=== PATIENT | female | born 1945 | race Caucasian/White ===

== ENCOUNTER 2023-09-07 16:04 | Emergency (ER) | payer MEDICARE, SELFPAY ==
[2023-09-07 16:09] VITALS: BP 129/88
--- NOTE | 2023-09-07 16:41 | ED.GENMED ---
History of Present Illness
General
Chief Complaint: DVT/Possible Blood Clot
Source: patient and family
Time Seen by Provider: 09/07/23 16:26
Travel History
Have you had any contact with someone who has COVID-19?: No
Do you have any symptoms of coronavirus? Fever > 100 degrees, chills, cough, shortness of breath, sore throat, loss of taste or smell, muscle aches, or headache?: No
History of Present Illness
History of Present Illness:
this patient is a 78-year-old female who states that in May she was diagnosed with pseudogout in the right knee, had treatment including arthrocentesis and a cortisone pack, but states that she just feels like it has not really gotten fully
better. She has been under the care of the orthopedic doctors and had an x-ray today that was consistent with arthritis. She notes continued knee pain and swelling and was told that it is related to arthritis. She states that they are not
concerned about tick arthritis. 5 days ago, she says she was pulling herself up and not using her arms and felt a 'rip' in the right calf area. It was slightly tender at that time, but since then, there is been progressive tenderness of the right
calf and ankle area. She was referred to the emergency department today to rule out a DVT. She denies chest pain, shortness of breath, fever, chills, nausea, vomiting, abdominal pain, numbness, or other complaints
Past History
Past History
ED Past Medical History: HTN and Other (Wrist Fracture, Vertigo)
ED Past Surgical History: Orthopedic (neck surgery)
Social History
Tobacco: Smoker
Alcohol: Daily (Wine One glass)
Drug: None
Personal:
Living: alone
Employment: Retired
Family History
Family History: Other
Phy Exam
Physical Exam
Physical Exam:
GENERAL: Alert , in no apparent distress
EYE: pupils equal and reactive
NECK: Supple, no significant adenopathy.
ENT: o/p clr, mmm.
CARDIAC: Regular rate and rhythm .
LUNGS: Clear breath sounds bilaterally, no acute respiratory distress, no wheezes/rales/rhonchi
ABDOMEN: Soft, without focal tenderness, no r/g, no cvat
NEUROLOGICAL: Alert and oriented, no focal neuro deficits
SKIN: Warm and dry, skin intact.
MUSCULOSKELETAL: tr-1+ R le edema, well perfused, 2+ DP pulses bilaterally, full range of motion, superficial abrasions noted without secondary signs of infection such as redness, warmth, fluctuance, open wound. Patient does have a small effusion
of the right knee and generalized discomfort but range of motion is well-preserved. No specific bony tenderness
PSYCH: Normal and appropriate interaction.
Course
Orders/Labs/Results
Orders:
Orders
09/07/23 16:12
Periph Venous Lwr Ext Rt US [US Periph Venous LOWER Ext RT] Urgent
Comment:
Reason For Exam: swelling, calf pain
Vital Signs
Initial and Last Documented VS:
Initial Vital Signs
Temp Pulse Resp BP Pulse Ox
98.4 F 91 18 129/88 98
09/07/23 16:09 09/07/23 16:09 09/07/23 16:09 09/07/23 16:09 09/07/23 16:09
Last Documented Vital Signs
Temp Pulse Resp BP Pulse Ox
98.4 F 84 18 139/75 100
09/07/23 16:09 09/07/23 17:21 09/07/23 17:21 09/07/23 17:21 09/07/23 17:21
*Critical Care Note
Total Time (30-74mins, 75-104mins- exclusive of procedures): Not Applicable
Update Note
Update Note:
Patient presents to the Emergency Department with __right calf discomfort
Number and Complexity of Problems Addressed at the Encounter
� Chronic conditions affecting care:
� Acute Exacerbation and/or Progression of Chronic Illness:
� Differential Diagnosis includes: But not limited to muscle strain, DVT, superficial thrombophlebitis, etc.
Amount and/or Complexity of Data to be Reviewed and Analyzed
� I performed an independent evaluation of and my interpretation is:
EKG:
CT:
Xrays:
Laboratory Studies:
Other: US preliminary report...negative (pt aware prelim reprot)
� Review of other/old records reveals: Patient was in the hospital most recently 2019 with chest pain and mild hyponatremia
� Clinical information was obtained by an independent historian: Daughter who is at bedside
� Prescriptions/Medications Considered but not given:
� Further testing considered but not performed: Did consider the possibility of septic arthritis however patient has well-preserved range of motion of right knee without tenderness to palpation, fever, redness, warmth, or other
findings.
Risk of Complications and/or Morbidity or Mortality of Patient Management
� Social determinants of health affecting care:
� Discussion with other providers (PCP, Hospitalists, Consultants, etc):
� Escalation of care including admission/observation vs risk of discharge considered: No signs to suggest neuro invovlvement, motor 5/5, sens intact, 2+ dp pulses, well perfused, no bony ttp,m no redness/warmth/etc to suggest
infection. Unclear speicif reason for swelling, US neg for dvt, d/w pt import of f/u and reasons to rted.
ED Attending Note
-
Portions of this chart may have been created with voice recognition software.� Occasional wrong word or��sound alike� substitutions may have occurred due to the inherent limitations of voice recognition software.
Discharge Plan
Departure
Patient with high blood pressure during this ER visit?: Yes
Condition: Good
Discharge Problem:
leg swelling
Instructions: Swelling, BLOOD PRESSURE
Prescriptions:
No Action
meclizine 25 MG tablet
25 mg PO Q8HPRN PRN (Reason: Dizziiness) Qty: 15 0RF
bupropion HCl 300 MG tablet extended release 24 hr
300 mg PO DAILY
oxycodone-acetaminophen 5 MG/325 MG tablet
1 tab PO .Q4-6HPRN PRN (Reason: severe pain)
citalopram 20 MG tablet
20 mg PO DAILY
amlodipine 10 MG tablet
10 mg PO DAILY
diazepam 5 MG tablet
5 mg PO DAILYPRN PRN (Reason: vertigo before nauseous)
Patient Comments:
last filled 08/28/19 for #20 for 10 day supply
valsartan [Diovan] 160 MG capsule
160 mg PO DAILY Qty: 30 0RF
Referrals:
Georgi Keating MD [Family Provider] -
Activity Restrictions/Additional Instructions:
PLEASE FOLLOW UP WITH YOUR DOCTOR PROMPTLY. IF YOU DEVELOP CHEST PAIN, TROUBLE BREATHING, FEVER, VOMITING, NUMBNESS, TINGLING, WEAKNESS, REDNESS, WARMTH, INCREASING SWELLING OR OHTER WORRISOME SIGNS, GO TO THE ER IMMEDIATELY!
Interventions
Interventions:
*Risk Screen - Suicide Last Done: 09/07/23 17:20
*General Assessment Last Done: 09/07/23 17:20
*Neglect/Abuse Screening Last Done: 09/07/23 17:20
*ED COVID-19 Vaccine History Last Done: 09/07/23 16:09
ED- Cardiac Assessment Last Done: 09/07/23 16:40
ED- Pulmonary Assessment Last Done: 09/07/23 16:40
ED-Peripheral Vascular Assessment Last Done: 09/07/23 16:41
ED-Skin Assessment Last Done: 09/07/23 16:40
Discharge Date and Time
Print Language: PARAGUAYAN
[2023-09-07 17:21] VITALS: BP 139/75; BMI 21.6
== END 2023-09-07 19:36 | disposition home or self-care (01) ==
LOC: EMR 16:04
PROVIDERS: EMERGENCY PHYSICIAN Emergency Medicine; FAMILY PHYSICIAN Family Medicine
DX: M79.89 Other specified soft tissue disorders (principal); M79.661 Pain in right lower leg; M25.461 Effusion, right knee; I10 Essential (primary) hypertension; M19.90 Unspecified osteoarthritis, unspecified site; F17.200 Nicotine dependence, unspecified, uncomplicated; Z88.2 Allergy status to sulfonamides
CPT/HCPCS: 99284; 93971

== ENCOUNTER 2024-05-14 19:52 | Emergency (ER) | payer MEDICARE, SELFPAY ==
[2024-05-14 20:01] VITALS: BP 138/85
[2024-05-14 20:19] LABS: % Basophils 0.5 % (0-2); % Eosinophils 2.1 % (0-6); % Immature Granulocytes 0.2 % (0-0.5); % Lymphocytes 29.8 % (20.5-51.1); % Monocytes 8.3 % (1.7-9.3); % Neutrophils 59.1 % (42.2-75.2); Absolute Eosinophils 0.2 10^3/uL (0-0.7); Absolute Lymphocytes 2.5 10^3/uL (1.2-3.4); Absolute Monocytes 0.7 10^3/uL (0.1-0.6); Hematocrit 39.5 % (37.0-47.0); Hemoglobin 13.3 g/dL (12.0-16.0); Mean Corp Hgb Conc. 33.7 g/dL (33.0-37.0); Mean Corpuscular Hgb 30.7 pg (27.0-31.0); Mean Corpuscular Volume 91.2 fL (81.0-99.0); Mean Platelet Volume 8.1 fL (7.4-10.4); Nucleated Red Blood Cells % 0 %; Platelet Count 317 10^3/uL (130-400); Red Blood Cell Count 4.33 10^6/uL (4.20-5.40); Red Cell Dist. Width 14.1 % (11.5-14.5); White Blood Cell Count 8.4 10^3/uL (4.8-10.8)
[2024-05-14 20:38] LABS: ALT (SGPT) 16 U/L (0-35); AST (SGOT) 22 U/L (14-36); Alkaline Phosphatase 84 U/L (38-126); Blood Urea Nitrogen 15 mg/dl (7-17); Calcium 8.9 mg/dl (8.4-10.2); Carbon Dioxide 23 mmol/L (22-30); Chloride 105 mmol/L (98-107); Glucose 93 mg/dl (70-99); Sodium 134 mmol/L (135-145); Total Bilirubin 0.4 mg/dl (0.2-1.3); Total Protein 6.5 g/dl (6.3-8.2); eGFR > 60.00
[2024-05-14 20:47] LABS: Troponin I < 0.012 ng/ml
[2024-05-14 22:00] VITALS: BP 127/78
[2024-05-14 23:03] VITALS: BP 122/79; BMI 20.9
--- NOTE | 2024-05-14 23:09 | ED.GENMED ---
History of Present Illness
General
Chief Complaint: Cardiac Symptoms
Source: patient and family
Exam Limitations: none
Time Seen by Provider: 05/14/24 22:54
Nursing documentation reviewed up to this point in time: agreed with
History of Present Illness
History of Present Illness:
79-year-old female past medical history of hypertension presenting to the emergency department today with concerns of fluttering of her chest as well as lightheadedness and episode 2 days ago as well as today. Took Valium and losartan with
improvement. Denies any recent illness or additional concerns
Past History
Past History
ED Past Medical History: HTN and Other (Wrist Fracture, Vertigo)
ED Past Surgical History: Orthopedic (neck surgery)
Social History
Tobacco: Smoker
Alcohol: Daily (Wine One glass)
Drug: None
Personal:
Living: alone
Employment: Retired
Family History
Family History: Other
Review of Systems
Review of Systems
Allergies reviewed?: Yes
All Other Systems: ROS reviewed and negative except as documented in HPI and ROS
Phy Exam
Physical Exam
Physical Exam:
GENERAL: Alert , in no apparent distress
EYE: pupils equal and reactive
NECK: Supple, no significant adenopathy.
ENT: o/p clr, mmm.
CARDIAC: Regular rate and rhythm .
LUNGS: Clear breath sounds bilaterally, no acute respiratory distress, no wheezes/rales/rhonchi
ABDOMEN: Soft, without focal tenderness, no r/g, no cvat
NEUROLOGICAL: Alert and oriented, no focal neuro deficits
SKIN: Warm and dry, skin intact.
MUSCULOSKELETAL: No edema, well perfused.
PSYCH: Normal and appropriate interaction.
Course
Orders/Labs/Results
Orders:
Orders
05/14/24 19:53
Electrocardiogram (*1) Urgent
Reason for Study: Palpitations
EKG- Treatment ONCE
05/14/24 20:12
Complete Blood Count/With Diff Urgent
Comprehensive Metabolic Panel Urgent
TSH Reflex To Free T4 Urgent
Comment: ADD ON
Troponin I Urgent
05/14/24 22:28
Add On- LAB Urgent
Tests Added?: TSH reflex
Abnormal Lab Results
05/14/24
20:12
Absolute Monos (auto) 0.7 H 10^3/uL
(0.1-0.6)
Sodium 134 L mmol/L
(135-145)
05/14/24 20:12
05/14/24 20:12
Vital Signs
Initial and Last Documented VS:
Initial Vital Signs
Temp Pulse Resp BP Pulse Ox
98.3 F 95 18 138/85 98
05/14/24 20:01 05/14/24 20:01 05/14/24 20:01 05/14/24 20:01 05/14/24 20:01
Last Documented Vital Signs
Temp Pulse Resp BP Pulse Ox
98.4 F 76 11 117/78 95
05/14/24 23:03 05/15/24 00:00 05/15/24 00:00 05/15/24 00:00 05/15/24 00:00
MDM/Problems Addressed
MDM/Problems Addressed:
79-year-old female presenting to the emergency department today with concerns of palpitations. Here vital signs are normal patient no distress labs unremarkable troponin negative EKG without emergent findings did have some PVCs. Otherwise here no
emergent findings can follow-up closely with cardiology return precautions given.
*Critical Care Note
Total Time (30-74mins, 75-104mins- exclusive of procedures): Not Applicable
ED Attending Note
-
Portions of this chart may have been created with voice recognition software.� Occasional wrong word or��sound alike� substitutions may have occurred due to the inherent limitations of voice recognition software.
Discharge Plan
Departure
Patient Disposition: Home (Routine Discharge)
Date of Disposition: 05/15/24
Time of Disposition: 00:14
Patient with high blood pressure during this ER visit?: No
Condition: Good
Covid-19: Not Applicable
Discharge Problem:
Chest pain
Instructions: Chest Pain CBC Follow Up
Prescriptions:
No Action
meclizine 25 MG tablet
25 mg PO Q8HPRN PRN (Reason: Dizziiness) Qty: 15 0RF
bupropion HCl 300 MG tablet extended release 24 hr
300 mg PO DAILY
oxycodone-acetaminophen 5 MG/325 MG tablet
1 tab PO .Q4-6HPRN PRN (Reason: severe pain)
citalopram 20 MG tablet
20 mg PO DAILY
amlodipine 10 MG tablet
10 mg PO DAILY
diazepam 5 MG tablet
5 mg PO DAILYPRN PRN (Reason: vertigo before nauseous)
Patient Comments:
last filled 08/28/19 for #20 for 10 day supply
valsartan [Diovan] 160 MG capsule
160 mg PO DAILY Qty: 30 0RF
Referrals:
UNKNOWN - PT DOES,NOT KNOW [Family Provider] -
Activity Restrictions/Additional Instructions:
You came to the emergency department today with concerns of palpitations and additional symptoms. Here you had a reassuring assessment. Please follow closely with cardiology. Return for any worsening, new or concerning symptoms.
Interventions
Interventions:
*Risk Screen - Suicide Last Done: 05/14/24 20:01
*General Assessment Last Done: 05/14/24 20:01
*Neglect/Abuse Screening Last Done: 05/14/24 20:01
ED- Fall Risk Assessment Last Done: 05/14/24 23:02
*ED COVID-19 Vaccine History Last Done: 05/14/24 20:01
ED- Pulmonary Assessment Last Done: 05/14/24 23:02
ED- Cardiac Assessment Last Done: 05/14/24 23:02
Discharge Date and Time
Print Language: FRENCH
[2024-05-14 23:36] LABS: TSH Reflex To Free T4 2.23 uIU/ml (0.47-4.68)
[2024-05-15] VITALS: BP 117/78
== END 2024-05-15 00:34 | disposition home or self-care (01) ==
LOC: EMR 19:52
PROVIDERS: Emergency Medicine; EMERGENCY PHYSICIAN Student in an Organized Health Care Education/Training Program
DX: R07.89 Other chest pain (principal); R42 Dizziness and giddiness; I10 Essential (primary) hypertension; F17.200 Nicotine dependence, unspecified, uncomplicated
CPT/HCPCS: 99283; 80053; 84443; 84484; 85025; 93005